=== PATIENT | female | born 1960 | race Caucasian/White ===

== ENCOUNTER 2017-08-06 10:54 | Inpatient (IN) | payer MEDICARE, OTHER ==
[2017-08-06 11:37] LABS: BASO % 0.2 % (0.0-1.0); EOS % 0.1 % (0.0-3.0); HEMATOCRIT 41.8 % (36.0-47.0); HEMOGLOBIN 14.1 g/dl (12.0-16.0); IMMATURE GRANULOCYTE % 0.3 % (0-0); LYMPH % 8.7 % (24.0-44.0); MEAN CORPUSCULAR HEMOGLOBIN 30.7 pg (27.0-33.0); MEAN CORPUSCULAR HGB CONC 33.7 g/dl (32.0-36.5); MEAN CORPUSCULAR VOLUME 90.9 fl (80.0-96.0); MONO # 0.4 10^3/uL (0.0-0.8); MONO % 3.4 % (0.0-5.0); NEUTROPHILS # 9.7 10^3/uL (1.8-7.7); NEUTROPHILS % 87.3 % (36.0-66.0); PLATELET COUNT, AUTOMATED 279 10^3/uL (150-450); RED CELL DISTRIBUTION WIDTH 12.5 % (11.5-14.5); WHITE BLOOD COUNT 11.1 10^3/uL (4.0-10.0)
[2017-08-06 12:07] LABS: ALBUMIN 3.9 GM/DL (3.2-5.2); ALBUMIN/GLOBULIN RATIO 0.74 (1.00-1.93); ALKALINE PHOSPHATASE 147 U/L (45-117); ALT/SGPT 21 U/L (12-78); ANION GAP 10 MEQ/L (8-16); AST/SGOT 17 U/L (7-37); BILIRUBIN,TOTAL 0.6 MG/DL (0.2-1.0); BLOOD UREA NITROGEN 33 MG/DL (7-18); CARBON DIOXIDE LEVEL 31 MEQ/L (21-32); CHLORIDE LEVEL 99 MEQ/L (98-107); CPK CREATINE PHOSPHOKINASE 74 U/L (26-192); CREATININE FOR GFR 1.47 MG/DL (0.55-1.02); GLUCOSE, FASTING 315 MG/DL (70-105); POTASSIUM SERUM 3.8 MEQ/L (3.5-5.1); SODIUM LEVEL 140 MEQ/L (136-145); TOTAL PROTEIN 9.2 GM/DL (6.4-8.2); TROPONIN I 0.03 NG/ML (< 0.10)
[2017-08-06 12:15] LABS: BILIRUBIN,DIRECT 0.1 MG/DL (0.0-0.2); CK-MB VALUE MASS 3.3 NG/ML (0.0-3.6); MB/CK RELATIVE INDEX 4.45 (< OR =4)
[2017-08-06] MEDS: ONDANSETRON 4MG/2ML VIAL (J2405) IV (12:15)
[2017-08-06 12:28] LABS: AMYLASE 24 U/L (25-115)
[2017-08-06 12:31] LABS: ABG BASE EXCESS 5.4 (-2.0-2.0); ABG HCO3 30.4 MEQ/L (22.0-26.0); ABG O2 SATURATION 97.1 % (95.0-99.0); ABG PARTIAL PRESSURE CO2 46.3 mmHg (35.0-45.0); ABG PARTIAL PRESSURE O2 92.6 mmHg (75.0-100.0); ABG STANDARD HCO3 29.3 MEQ/L (22.0-26.0); ABG TOTAL CO2 31.8 MEQ/L (22.0-29.0); ABG pH (ARTERIAL) 7.435 UNITS (7.350-7.450)
[2017-08-06 12:47] LABS: PROTHROMBIN TIME 12.2 SECONDS (12.4-14.5)
[2017-08-06 12:48] LABS: PARTIAL THROMBOPLASTIN TIME 24.3 SECONDS (26.8-37.9)
[2017-08-06] MEDS ORDERED: LABETALOL HCL 100 MG/20 ML VIAL As Ordered ×2 (13:21→18:20)
[2017-08-06] MEDS ORDERED: GLUCAGON FOR INJ 1 MG VIAL (J1610) SC (14:45)
[2017-08-06] MEDS ORDERED: GLUCOSE 4 GM CHEW TABLET PO (14:45)
[2017-08-06] MEDS ORDERED: DEXTROSE 50% 50 ML SYRINGE IV (14:45)
[2017-08-06] MEDS: KCL 20MEQ IN D5/0.45NS 1000ML 1,000 ML IV (17:22)
[2017-08-06] MEDS: HumaLOG INSULIN (NovoLOG) PER UNIT SC ×2 (17:59→23:50)
[2017-08-06 18:01] LABS: BEDSIDE GLUCOSE 301 MG/DL (70-105)
[2017-08-06] MEDS: LABETALOL HCL 100 MG/20 ML VIAL IV (18:27)
[2017-08-06 23:27] LABS: BEDSIDE GLUCOSE 303 MG/DL (70-105)
[2017-08-07] MEDS: KCL 20MEQ IN D5/0.45NS 1000ML 1,000 ML IV ×3 (03:19→19:18)
[2017-08-07 04:32] LABS: BASO % 0.2 % (0.0-1.0); EOS % 0.2 % (0.0-3.0); HEMATOCRIT 35.6 % (36.0-47.0); IMMATURE GRANULOCYTE % 0.2 % (0-0); LYMPH # 2.1 10^3/uL (1.5-4.5); LYMPH % 21.8 % (24.0-44.0); MEAN CORPUSCULAR HEMOGLOBIN 30.5 pg (27.0-33.0); MEAN CORPUSCULAR HGB CONC 32.9 g/dl (32.0-36.5); MONO # 1.1 10^3/uL (0.0-0.8); MONO % 11.7 % (0.0-5.0); NEUTROPHILS # 6.5 10^3/uL (1.8-7.7); NEUTROPHILS % 65.9 % (36.0-66.0); PLATELET COUNT, AUTOMATED 216 10^3/uL (150-450); RED BLOOD COUNT 3.83 10^6/uL (4.00-5.40); RED CELL DISTRIBUTION WIDTH 12.9 % (11.5-14.5); WHITE BLOOD COUNT 9.8 10^3/uL (4.0-10.0)
[2017-08-07 04:53] LABS: HEMOGLOBIN 11.7 g/dl (12.0-16.0)
[2017-08-07 05:22] LABS: ALBUMIN/GLOBULIN RATIO 0.75 (1.00-1.93); ALKALINE PHOSPHATASE 104 U/L (45-117); ALT/SGPT 15 U/L (12-78); ANION GAP 6 MEQ/L (8-16); AST/SGOT 12 U/L (7-37); BILIRUBIN,TOTAL 0.3 MG/DL (0.2-1.0); BLOOD UREA NITROGEN 44 MG/DL (7-18); CARBON DIOXIDE LEVEL 33 MEQ/L (21-32); CHLORIDE LEVEL 103 MEQ/L (98-107); CHOLESTEROL LEVEL 172 MG/DL (< 200); CPK CREATINE PHOSPHOKINASE 100 U/L (26-192); CREATININE FOR GFR 1.72 MG/DL (0.55-1.02); GLOMERULAR FILTRATION RATE 32.5 (>51); GLUCOSE, FASTING 201 MG/DL (70-105); LDH LACTATE DEHYDROGENASE 188 U/L (84-246); PHOSPHORUS LEVEL 3.2 MG/DL (2.5-4.9); POTASSIUM SERUM 4.1 MEQ/L (3.5-5.1); SODIUM LEVEL 142 MEQ/L (136-145); TRIGLYCERIDES LEVEL 96 MG/DL (<150)
[2017-08-07 05:57] LABS: BEDSIDE GLUCOSE 177 MG/DL (70-105)
[2017-08-07] MEDS: HumaLOG INSULIN (NovoLOG) PER UNIT SC ×3 (06:21→18:05)
[2017-08-07] MEDS: LABETALOL HCL 100 MG/20 ML VIAL IV ×3 (06:52→20:50)
[2017-08-07 12:14] LABS: BEDSIDE GLUCOSE 204 MG/DL (70-105)
[2017-08-07 17:40] LABS: BEDSIDE GLUCOSE 235 MG/DL (70-105)
[2017-08-07] MEDS ORDERED: LABETALOL HCL 200 MG in D5W 160 ML IV (23:30)
[2017-08-08] MEDS: LABETALOL HCL 200 MG in D5W 160 ML IV ×2 (00:12→19:27)
[2017-08-08] MEDS: HumaLOG INSULIN (NovoLOG) PER UNIT SC ×5 (00:17→23:55)
[2017-08-08 00:21] LABS: BEDSIDE GLUCOSE 327 MG/DL (70-105)
[2017-08-08] MEDS: KCL 20MEQ IN D5/0.45NS 1000ML 1,000 ML IV ×3 (03:07→19:15)
[2017-08-08] MEDS: ONDANSETRON 4MG/2ML VIAL (J2405) IV ×2 (03:07→20:50)
[2017-08-08 05:52] LABS: BASO % 0.1 % (0.0-1.0); EOS % 0.1 % (0.0-3.0); HEMATOCRIT 32.3 % (36.0-47.0); HEMOGLOBIN 10.4 g/dl (12.0-16.0); IMMATURE GRANULOCYTE % 0.4 % (0-0); LYMPH # 0.9 10^3/uL (1.5-4.5); LYMPH % 11.6 % (24.0-44.0); MEAN CORPUSCULAR HEMOGLOBIN 30.1 pg (27.0-33.0); MEAN CORPUSCULAR HGB CONC 32.2 g/dl (32.0-36.5); MEAN CORPUSCULAR VOLUME 93.6 fl (80.0-96.0); MONO # 0.6 10^3/uL (0.0-0.8); MONO % 8.3 % (0.0-5.0); NEUTROPHILS # 6.1 10^3/uL (1.8-7.7); NEUTROPHILS % 79.5 % (36.0-66.0); PLATELET COUNT, AUTOMATED 159 10^3/uL (150-450); RED BLOOD COUNT 3.45 10^6/uL (4.00-5.40); RED CELL DISTRIBUTION WIDTH 12.6 % (11.5-14.5); WHITE BLOOD COUNT 7.7 10^3/uL (4.0-10.0)
[2017-08-08 06:20] LABS: ALBUMIN 2.4 GM/DL (3.2-5.2); ALBUMIN/GLOBULIN RATIO 0.65 (1.00-1.93); ALKALINE PHOSPHATASE 88 U/L (45-117); ALT/SGPT 13 U/L (12-78); ANION GAP 7 MEQ/L (8-16); AST/SGOT 10 U/L (7-37); BILIRUBIN,TOTAL 0.3 MG/DL (0.2-1.0); BLOOD UREA NITROGEN 24 MG/DL (7-18); CALCIUM LEVEL 8.8 MG/DL (8.5-10.1); CARBON DIOXIDE LEVEL 28 MEQ/L (21-32); CHLORIDE LEVEL 103 MEQ/L (98-107); CHOLESTEROL LEVEL 145 MG/DL (< 200); CPK CREATINE PHOSPHOKINASE 50 U/L (26-192); CREATININE FOR GFR 1.01 MG/DL (0.55-1.02); GLOMERULAR FILTRATION RATE > 60.0 (>51); GLUCOSE, FASTING 295 MG/DL (70-100); LDH LACTATE DEHYDROGENASE 181 U/L (84-246); POTASSIUM SERUM 4.2 MEQ/L (3.5-5.1); SODIUM LEVEL 138 MEQ/L (136-145); TOTAL PROTEIN 6.1 GM/DL (6.4-8.2); TRIGLYCERIDES LEVEL 85 MG/DL (<150)
[2017-08-08 06:45] LABS: BEDSIDE GLUCOSE 320 MG/DL (70-105)
[2017-08-08 06:53] LABS: PHOSPHORUS LEVEL 1.8 MG/DL (2.5-4.9)
[2017-08-08 13:23] LABS: BEDSIDE GLUCOSE 339 MG/DL (70-105)
[2017-08-08 18:47] LABS: BEDSIDE GLUCOSE 316 MG/DL (70-105)
[2017-08-08 23:57] LABS: BEDSIDE GLUCOSE 310 MG/DL (70-105)
[2017-08-09] MEDS: KCL 20MEQ IN D5/0.45NS 1000ML 1,000 ML IV ×3 (02:57→19:11)
[2017-08-09 05:24] LABS: BASO % 0.1 % (0.0-1.0); HEMATOCRIT 30.3 % (36.0-47.0); IMMATURE GRANULOCYTE % 0.3 % (0-0); LYMPH # 0.7 10^3/uL (1.5-4.5); LYMPH % 7.6 % (24.0-44.0); MEAN CORPUSCULAR HEMOGLOBIN 30.9 pg (27.0-33.0); MEAN CORPUSCULAR VOLUME 93.5 fl (80.0-96.0); MONO # 0.5 10^3/uL (0.0-0.8); MONO % 5.6 % (0.0-5.0); NEUTROPHILS # 7.8 10^3/uL (1.8-7.7); NEUTROPHILS % 86.4 % (36.0-66.0); PLATELET COUNT, AUTOMATED 150 10^3/uL (150-450); RED BLOOD COUNT 3.24 10^6/uL (4.00-5.40); RED CELL DISTRIBUTION WIDTH 12.2 % (11.5-14.5)
[2017-08-09 05:57] LABS: ALBUMIN 2.3 GM/DL (3.2-5.2); ALBUMIN/GLOBULIN RATIO 0.64 (1.00-1.93); ALKALINE PHOSPHATASE 83 U/L (45-117); ALT/SGPT 12 U/L (12-78); ANION GAP 7 MEQ/L (8-16); BILIRUBIN,TOTAL 0.4 MG/DL (0.2-1.0); BLOOD UREA NITROGEN 15 MG/DL (7-18); CALCIUM LEVEL 8.5 MG/DL (8.5-10.1); CARBON DIOXIDE LEVEL 28 MEQ/L (21-32); CHLORIDE LEVEL 101 MEQ/L (98-107); CHOLESTEROL LEVEL 127 MG/DL (< 200); CPK CREATINE PHOSPHOKINASE 30 U/L (26-192); CREATININE FOR GFR 0.93 MG/DL (0.55-1.02); GLOMERULAR FILTRATION RATE > 60.0 (>51); LDH LACTATE DEHYDROGENASE 176 U/L (84-246); PHOSPHORUS LEVEL 1.6 MG/DL (2.5-4.9); POTASSIUM SERUM 4.5 MEQ/L (3.5-5.1); SODIUM LEVEL 136 MEQ/L (136-145); TOTAL PROTEIN 5.9 GM/DL (6.4-8.2); TRIGLYCERIDES LEVEL 65 MG/DL (<150)
[2017-08-09 06:08] LABS: AST/SGOT 8 U/L (7-37)
[2017-08-09] MEDS: HumaLOG INSULIN (NovoLOG) PER UNIT SC ×4 (06:14→23:49)
[2017-08-09] MEDS: LABETALOL HCL 200 MG in D5W 160 ML IV ×2 (06:15→19:12)
[2017-08-09 08:10] LABS: GLUCOSE, FASTING 323 MG/DL (70-100)
[2017-08-09] MEDS: LEVEMIR (INSULIN DETEMIR) 1 UNITS/0.01ML SC ×2 (08:41→20:42)
[2017-08-09] MEDS: MORPHINE 2 MG/ML 1ML SYRINGE IV ×4 (09:33→22:41)
[2017-08-09] MEDS: PANTOPRAZOLE 40MG INJ (PROTONIX) (C9113) IV (10:41)
[2017-08-09] MEDS: CAPTOpril 12.5 MG TAB PO ×3 (11:07→23:13)
[2017-08-09 11:42] LABS: BEDSIDE GLUCOSE 344 MG/DL (70-105)
[2017-08-09 17:26] LABS: BEDSIDE GLUCOSE 271 MG/DL (70-105)
[2017-08-09 20:20] LABS: BEDSIDE GLUCOSE 229 MG/DL (70-105)
[2017-08-09] MEDS: NITROGLYCERIN 2% OINT 1 GM *U/D* PKT TOP (23:13)
[2017-08-09 23:49] LABS: BEDSIDE GLUCOSE 219 MG/DL (70-105)
[2017-08-10] MEDS: KCL 20MEQ IN D5/0.45NS 1000ML 1,000 ML IV ×2 (01:49→09:46)
[2017-08-10] MEDS: MORPHINE 2 MG/ML 1ML SYRINGE IV ×5 (03:13→16:51)
[2017-08-10 05:46] LABS: BASO % 0.1 % (0.0-1.0); EOS % 0.1 % (0.0-3.0); HEMATOCRIT 29.1 % (36.0-47.0); HEMOGLOBIN 9.6 g/dl (12.0-16.0); IMMATURE GRANULOCYTE % 0.4 % (0-0); LYMPH # 1.4 10^3/uL (1.5-4.5); LYMPH % 12.5 % (24.0-44.0); MEAN CORPUSCULAR HEMOGLOBIN 30.6 pg (27.0-33.0); MEAN CORPUSCULAR VOLUME 92.7 fl (80.0-96.0); MONO # 0.7 10^3/uL (0.0-0.8); MONO % 6.7 % (0.0-5.0); NEUTROPHILS # 8.8 10^3/uL (1.8-7.7); NEUTROPHILS % 80.2 % (36.0-66.0); PLATELET COUNT, AUTOMATED 177 10^3/uL (150-450); RED BLOOD COUNT 3.14 10^6/uL (4.00-5.40); RED CELL DISTRIBUTION WIDTH 12.3 % (11.5-14.5); WHITE BLOOD COUNT 10.9 10^3/uL (4.0-10.0)
[2017-08-10] MEDS: CAPTOpril 12.5 MG TAB PO ×2 (06:30→11:42)
[2017-08-10] MEDS: NITROGLYCERIN 2% OINT 1 GM *U/D* PKT TOP ×3 (06:31→12:00)
[2017-08-10] MEDS: HumaLOG INSULIN (NovoLOG) PER UNIT SC ×2 (06:31→11:40)
[2017-08-10 06:32] LABS: BEDSIDE GLUCOSE 208 MG/DL (70-105)
[2017-08-10 06:42] LABS: ALBUMIN 2.3 GM/DL (3.2-5.2); ALKALINE PHOSPHATASE 78 U/L (45-117); ALT/SGPT 12 U/L (12-78); ANION GAP 5 MEQ/L (8-16); AST/SGOT 8 U/L (7-37); BILIRUBIN,TOTAL 0.3 MG/DL (0.2-1.0); BLOOD UREA NITROGEN 12 MG/DL (7-18); CALCIUM LEVEL 8.3 MG/DL (8.5-10.1); CARBON DIOXIDE LEVEL 29 MEQ/L (21-32); CHLORIDE LEVEL 101 MEQ/L (98-107); CHOLESTEROL LEVEL 128 MG/DL (< 200); CPK CREATINE PHOSPHOKINASE 70 U/L (26-192); CREATININE FOR GFR 0.83 MG/DL (0.55-1.02); GLOMERULAR FILTRATION RATE > 60.0 (>51); GLUCOSE, FASTING 191 MG/DL (70-100); LDH LACTATE DEHYDROGENASE 175 U/L (84-246); PHOSPHORUS LEVEL 2.4 MG/DL (2.5-4.9); POTASSIUM SERUM 4.7 MEQ/L (3.5-5.1); SODIUM LEVEL 135 MEQ/L (136-145); TOTAL PROTEIN 5.6 GM/DL (6.4-8.2); TRIGLYCERIDES LEVEL 82 MG/DL (<150)
[2017-08-10] MEDS: PANTOPRAZOLE 40MG INJ (PROTONIX) (C9113) IV (08:36)
[2017-08-10] MEDS: LEVEMIR (INSULIN DETEMIR) 1 UNITS/0.01ML SC (08:37)
[2017-08-10 12:00] LABS: BEDSIDE GLUCOSE 118 MG/DL (70-105)
[2017-08-10] MEDS: hydrALAZINE INJ 20 MG/ML VIAL IV (13:01)
[2017-08-10] MEDS: SCOPOLAMINE 1MG TRANSDERMAL PATCH TOP (15:45)
[2017-08-10] MEDS ORDERED: NITROGLYCERIN 2% OINT 1 GM *U/D* PKT TOP (18:00)
[2017-08-11] MEDS: MORPHINE 2 MG/ML 1ML SYRINGE IV (05:34)
[2017-08-12] MEDS: MORPHINE 2 MG/ML 1ML SYRINGE IV (04:29)
[2017-08-16] MEDS: MORPHINE 2 MG/ML 1ML SYRINGE IV (22:08)
[2017-08-17] MEDS: LORazepam 2 MG/ML VIAL (J2060) IV ×2 (03:32→13:24)
[2017-08-17] MEDS: MORPHINE 2 MG/ML 1ML SYRINGE IV ×2 (10:10→12:26)
[2017-08-17] MEDS: SCOPOLAMINE 1MG TRANSDERMAL PATCH TOP (12:26)
== END 2017-08-17 15:36 | disposition expired | DRG 64 ==
LOC: M MS5PR 08-10 17:02 → M ED 10:54 → M ED INP 14:29 → M ICU 16:50
DX: I61.5 Nontraumatic intracerebral hemorrhage, intraventricular (principal); G93.41 Metabolic encephalopathy; I69.354 Hemiplegia and hemiparesis following cerebral infarction affecting left non-dominant side; Z66 Do not resuscitate; Z51.5 Encounter for palliative care; E78.5 Hyperlipidemia, unspecified; H40.9 Unspecified glaucoma; I10 Essential (primary) hypertension; E11.40 Type 2 diabetes mellitus with diabetic neuropathy, unspecified; R40.20 Unspecified coma; Z88.5 Allergy status to narcotic agent; Z88.8 Allergy status to other drugs, medicaments and biological substances; Z79.82 Long term (current) use of aspirin; Z79.4 Long term (current) use of insulin; Z79.02 Long term (current) use of antithrombotics/antiplatelets